=== PATIENT | female | born 1955 | race Caucasian/White ===

== ENCOUNTER 2019-07-24 21:33 | Emergency (ER) | payer OTHER, BC ==
[~2019-07-24] VITALS: Ht 162.6 cm; Wt 87.2 kg
--- NOTE | 2019-07-24 21:54 | NUR ---
PT ADMITS TO ETOH TONIGHT - SHE IS VERY LOUD AND USING LOTS OF FOUL LANGUAGE; HOWEVER SHE IS COOPERATIVE WITH CARE.
[2019-07-24] MEDS ORDERED: silver sulfadiazine cream 400gm jar TP ONE (22:05)
[2019-07-24] MEDS ORDERED: ketorolac trometh inj. 60 MG/2 ML VIAL IM ONE (22:05)
[2019-07-24] MEDS ORDERED: TRAM50TA2 PO (22:07)
[2019-07-24] MEDS ORDERED: CEPH500C5 PO (22:07)
[2019-07-24] MEDS ORDERED: TETanus/Pertussis (Acell)/Diphther VAC/PF (Tdap-Adult) 0.5ml syringe IMVAC ONE (22:10)
[2019-07-24] MEDS ORDERED: silver sulfadiazine cream 50gm TP ONE (22:10)
[2019-07-24 22:36] VITALS: BP 139/82
== END 2019-07-24 22:40 | disposition home or self-care (01) ==
LOC: ER 21:41
DX: T23.201A Burn of second degree of right hand, unspecified site, initial encounter (principal); T24.121A Burn of first degree of right knee, initial encounter; T24.122A Burn of first degree of left knee, initial encounter; Z72.89 Other problems related to lifestyle; Z79.899 Other long term (current) drug therapy; X03.3XXA Fall due to controlled fire, not in building or structure, initial encounter; Y93.89 Activity, other specified; Y92.89 Other specified places as the place of occurrence of the external cause; Y99.8 Other external cause status
CPT/HCPCS: 16000; 90471; 90715; 96372; 99284; J1885

== ENCOUNTER 2024-10-31 08:59 | Emergency (ER) | payer BC, OTHER ==
[~2024-10-31] VITALS: Ht 162.6 cm; Wt 95.0 kg
[2024-10-31 09:08] VITALS: BP 158/74; PULSE 86; O2SAT 97
--- NOTE | 2024-10-31 09:52 | RADIOLOGY REPORT ---
DI KNEE, COMP 4 VW MIN, INDICATION: KNEE PAIN TECHNICAL DATA: Frontal , oblique and lateral views were obtained of the right knee. COMPARISON: None FINDINGS: No fracture is identified. Medial, lateral and patellofemoral compartment joint spaces are maintained . Alignment is anatomic. Soft tissues are within normal limits. No joint effusion is demonstrated. IMPRESSION: No acute fracture or dislocation of the right knee. Severe degenerative changes.
--- NOTE | 2024-10-31 11:00 | Physician Documentation ---
History of Present Illness ~ Chief Complaint: Knee Pain Stated Complaint: L KNEE PAIN Time Seen by MD: 09:20 Primary Medical Doctor: NONE HPI 69-year-old female reports a chief complaint of right knee pain. Patient states she has been experiencing pain for several years and states that it has been exacerbated over the last two weeks. Denies any significant injury or trauma to the knee, however patient does state she has a ulcer to the when she was younger. Currently denies fevers or chills. He is able to ambulate but it is endorsing pain with ambulation. He is using a hot and cold compresses. States it is not really improving symptoms. No other complaints at this time Tetanus witin 5 years: Yes Medication Reconciliation Allergies: Coded Allergies: No Known Allergies (Unverified , 07/24/19) Past Medical History Past Medical History: No Pertinent History Past Surgical History: noncontributory Alcohol Use: Occasionally Drug Use: none Lives In: Home Physical Exam Vital Signs: Temperature: 98.0, Source: Temporal, Heart Rate: 86, Respiratory Rate: 16, BP: 158/74, Pulse Oximetry: 97, Weight: 95.000 Oxygen Flow Rate: 0 Physical Exam General: Well developed, well nourished, no distress. HEENT: Atraumatic, normal conjunctiva, moist mucous membranes. Neck: Full range of motion, supple. Respiratory: Lungs clear, no respiratory distress. Chest: No accessory muscle use, nontender. Cardiovascular: Regular rate and rhythm. Gastrointestinal: Soft, nontender, nondistended. Bowel sounds present. Extremities: Right knee exam: Negative for permanents gross deformities. Negative for overlying erythema, ecchymosis signs of infection. Positive for tenderness mediolateral joint line. Positive pain with flexion-extension of the knee with flexion-extension from 0-130.. Lateral in cruciate ligaments intact. Negative meniscus provocation. Neurovascular intact distally Back: No midline tenderness, no CVA tenderness. Neurologic: Oriented x4. Distal gross motor and sensory intact all four extremities. Moves all 4 extremities spontaneously. Psychiatric: Normal mood and affect. Skin: Normal color, warm and dry. No edema, no ecchymosis Progress Results/Orders Results/Orders Completed Orders - SEBASTIÁN HERNANDEZ Methylprednisolone Acetate*Im* (Depo-Med (10/31/24 10:30) Lidocaine 1% W/Epi 1:100,000 (Xylocaine (10/31/24 10:30) Ketorolac Trometh 30mg/Ml Vial (Toradol (10/31/24 10:30) Methylprednisolone Sod Succ (Solumedrol (10/31/24 10:45) Vital Signs 10/31/24 09:08 Temp 98.0 Pulse 86 Resp 16 B/P (MAP) 158/74 Pulse Ox 97 O2 Flow Rate 0 Medical Decision Making Additional info obtained from: old records Findings After detailed discussion and joint medical decision-making, diagnostic and imaging results were discussed with the patient. At this time patient will receive a cortisone injection to the knee he will be discharged with a instructions to follow up with Orthopedics. Patient will be given medication for pain as well. ER precautions were given. Patient is stable upon discharge. All patient questions answered to satisfaction General Diff Dx:Considerations: Include: Other (Fracture, contusion, strain, osteoarthritis) Departure Disposition: HOME / SELF CARE / HOMELESS Impression: Primary Impression: Effusion of knee Additional Impressions: Arthritis Osteoarthritis, knee Condition: Stable Discharge Instructions: Knee Effusion, Arthritis Referrals: NO PRIMARY CARE PROVIDER (PCP) Prescriptions Hydrocodone Bit/Acetaminophen 5/325 MG (Beeler 5/325 MG) 5 Mg/325 Mg Tablet 1 TAB PO Q12H PRN PRN for pain for 5 Days, #10 TAB Prov: SEBASTIÁN HERNANDEZ 10/31/24 Education Educated: Patient Educated regarding: diagnosis Signature Scribe Signature: none used Attestation: Scribed for Sebastián Hernandez by Sebastián LADD . 10/31/24 11:03 SEBASTIÁN HERNANDEZ October 31, 2024 11:00
[2024-10-31 11:02] VITALS: RESP 16
[2024-10-31] MEDS: ketorolac trometh 30MG/ML vial 30 MG/ML VIAL IM ONE (11:02)
[2024-10-31] MEDS ORDERED: HYDR-3965 PO (11:02)
[2024-10-31] MEDS: methylPREDNISolone sod succ 125mg/2ml vial IM ONE (11:05)
[2024-10-31] MEDS: LIDOcaine 1% W/epiNEPHrine 1:100,000 20ml vial SQ ONE (11:12)
[2024-10-31] MEDS: methylPREDNISolone acetate 80mg/ml inj**IM only IM ONE ×2 (11:19→11:20)
[2024-10-31 11:57] VITALS: TEMP 98
== END 2024-10-31 11:59 | disposition home or self-care (01) ==
LOC: ER 09:00
DX: M25.462 Effusion, left knee (principal); M17.12 Unilateral primary osteoarthritis, left knee; Z72.89 Other problems related to lifestyle
CPT/HCPCS: 73564; 96372; 99283; J1885